=== PATIENT | female | born 1965 | race Two or more races ===

== ENCOUNTER → 2020-01-19 | Emergency (ER) | payer SELFPAY ==
[~2020-01-19] VITALS: Ht 162.6 cm; Wt 68.5 kg
--- NOTE | 2020-01-19 11:25 | NUR ---
[id number], c/o left clavicle, chest, neck,and right rib pain 10/10 pain scale. PT also states of abdominal pain. awaiting for md smith
--- NOTE | 2020-01-19 11:40 | NUR ---
at bedside for eval
[2020-01-19 12:39] LABS: BASOPHILS # (AUTO) 0.1 /CMM (0.0-0.2); BASOPHILS % (AUTO) 0.9 % (0.0-2.0); EOSINOPHILS % (AUTO) 1.5 % (0.0-6.0); HEMATOCRIT 38 % (33-45); HEMOGLOBIN 12.4 g/dL (11.5-14.8); LYMPHOCYTES # (AUTO) 2.1 /CMM (0.8-4.8); LYMPHOCYTES % (AUTO) 32.4 % (20.0-44.0); MEAN CORPUSCULAR HGB CONC 33 g/dl (31.0-36.0); MEAN CORPUSCULAR VOLUME 92 fL (82-100); MONOCYTES # (AUTO) 0.5 /CMM (0.1-1.30); MONOCYTES % (AUTO) 7.8 % (2.0-12.0); NEUTROPHILS # (AUTO) 3.7 /CMM (1.8-8.9); NEUTROPHILS % (AUTO) 57.4 % (43.0-81.0); PLATELET COUNT (AUTO) 302 /CMM (150-450); RED BLOOD CELL COUNT(AUTO) 4.06 MIL/uL (4.0-5.2); WHITE BLOOD COUNT (AUTO) 6.5 K/uL (4.3-11.0)
[2020-01-19 12:52] LABS: ALANINE AMINOTRANSFERASE 27 U/L (12-78); ALBUMIN 3.9 g/dL (3.4-5.0); ALKALINE PHOSPHATASE 79 U/L (46-116); ASPARTATE AMINOTRANSFERASE 32 U/L (15-37); BILIRUBIN,TOTAL 0.3 mg/dL (0.2-1.0); CALCIUM, SERUM 9.4 mg/dL (8.5-10.1); CARBON DIOXIDE 25 mmol/L (21-32); CHLORIDE 103 mmol/L (98-107); CREATININE 1.1 mg/dL (0.6-1.3); GLUCOSE 89 mg/dL (74-106); POTASSIUM 4.5 mmol/L (3.5-5.1); SODIUM SERUM 138 mmol/L (136-145); TOTAL PROTEIN, SERUM 8.6 g/dL (6.4-8.2); UREA NITROGEN, BLOOD 14 mg/dL (7-18)
--- NOTE | 2020-01-19 13:25 | NUR ---
Patient does not wish to proceed with medical care recommended by Dr. Fallon. Patient given information related to possible complications, up to and including permanent disability which could occur as a result of leaving the hospital at this time. Patient verbalizes understanding of risks involved due to leaving against medical advice. Patient has signed AMA form.
[2020-01-19 13:26] VITALS: BP 116/67
== END | disposition home or self-care (01) ==
LOC: ER 11:18
DX: S16.1XXA Strain of muscle, fascia and tendon at neck level, initial encounter (principal); S39.012A Strain of muscle, fascia and tendon of lower back, initial encounter; S29.8XXA Other specified injuries of thorax, initial encounter; Z98.51 Tubal ligation status; V49.49XA Driver injured in collision with other motor vehicles in traffic accident, initial encounter; Y93.89 Activity, other specified; Y92.488 Other paved roadways as the place of occurrence of the external cause; Y99.8 Other external cause status
CPT/HCPCS: 36415; 71045-TC; 80048-TC; 80076-TC; 84484-TC; 85025-TC; 85730-TC

== ENCOUNTER 2020-01-20 08:33 | Emergency (ER) | payer SELFPAY ==
[~2020-01-20] VITALS: Ht 162.6 cm; Wt 68.5 kg
--- NOTE | 2020-01-20 08:40 | NUR ---
PT BIB SELF C/O BACK PAIN 10/19. PT STATES THAT SHE WAS JUST HERE YESTERDAY, BUT THAT SHE LEFT AMA BECAUSE SHE COULD NOT WAIT ANY LONG. VS CJHECKED. AWAITING MD GARCIA.
[2020-01-20] MEDS ORDERED: ACETAMINOPHEN ES 500 MG TABLET ONE (08:54)
[2020-01-20] MEDS ORDERED: IBUPROFEN 600 MG TABLET ONE (08:54)
[2020-01-20] MEDS ORDERED: ACETAMINOPHEN ES 500 MG TABLET PO ONE (09:00)
[2020-01-20] MEDS ORDERED: IBUPROFEN 600 MG TABLET PO ONE (09:00)
--- NOTE | 2020-01-20 09:05 | NUR ---
PT BACK FROM CT
[2020-01-20 11:24] VITALS: BP 131/78
--- NOTE | 2020-01-20 11:24 | NUR ---
Patient discharged to home in stable condition. Written and verbal after care instructions given. Patient verbalizes understanding of instruction.
== END 2020-01-20 11:25 | disposition home or self-care (01) ==
LOC: ER 08:34
DX: S16.1XXA Strain of muscle, fascia and tendon at neck level, initial encounter (principal); S29.8XXA Other specified injuries of thorax, initial encounter; Z98.51 Tubal ligation status; V49.49XA Driver injured in collision with other motor vehicles in traffic accident, initial encounter; Y93.89 Activity, other specified; Y92.488 Other paved roadways as the place of occurrence of the external cause; Y99.8 Other external cause status
CPT/HCPCS: 71250-TC; 72125-TC